=== PATIENT | male | born 1950 | race Caucasian/White ===

== ENCOUNTER 2018-10-25 10:46 | Emergency (ER) | payer OTHER ==
[2018-10-25 11:35] LABS: ADD MAN DIFF? NO
[2018-10-25 11:36] LABS: BASOPHIL # 0.1 10^3/ul (0.0-0.1); BASOPHILS % 0.6 % (0.0-2.0); EOSINOPHILS # 0.4 10^3/ul (0.0-0.5); EOSINOPHILS % 3.1 % (0.0-7.0); HEMATOCRIT 38.3 % (42.0-52.0); HEMOGLOBIN 12.4 g/dl (14.0-18.0); LYMPHOCYTES # 1.7 10^3/ul (0.8-2.9); LYMPHOCYTES % 13.7 % (15.0-51.0); MEAN CORPUSCULAR HEMOGLOBIN 30.1 pg (29.0-33.0); MEAN CORPUSCULAR HGB CONC 32.4 g/dl (32.0-37.0); MEAN PLATELET VOLUME 9.5 fl (7.4-10.4); MONOCYTE # 0.7 10^3/ul (0.3-0.9); MONOCYTES % 6.1 % (0.0-11.0); NEUTROPHIL # 9.1 10^3/ul (1.6-7.5); NEUTROPHILS % 75.3 % (39.0-77.0); PLATELET COUNT 451 10^3/UL (140-415); RED BLOOD COUNT 4.12 10^6/ul (4.70-6.10); RED CELL DISTRIBUTION WIDTH 12.1 % (11.5-14.5)
[2018-10-25 11:36] LABS: WHITE BLOOD COUNT 12.1 10^3/ul (4.8-10.8)
[2018-10-25 11:56] LABS: INR 1.05; PARTIAL THROMBOPLASTIN TIME 29.6 Sec (23.0-35.0); PROTIME 13.8 Sec (11.9-14.9); PT RATIO 1.1
[2018-10-25 12:08] LABS: ANION GAP 6 (5-13); BLOOD UREA NITROGEN 25 mg/dl (7-20); CARBON DIOXIDE 26 mmol/L (21-31); CHLORIDE 109 mmol/L (97-110); CREATININE 1.41 mg/dl (0.61-1.24); Estimated GFR 50 mL/min (>60); GLUCOSE 98 mg/dl (70-220); POTASSIUM 4.4 mmol/L (3.5-5.1); SODIUM 141 mmol/L (135-144)
[2018-10-25 12:27] LABS: TROPONIN-I < 0.012 ng/ml (0.000-0.120)
== END 2018-10-25 12:40 | disposition home or self-care (01) ==
LOC: E/R 10:46
DX: L03.116 Cellulitis of left lower limb (principal); I25.2 Old myocardial infarction; Z98.61 Coronary angioplasty status
CPT/HCPCS: 71045; 80048; 84484; 85025; 85610; 85730; 93971; 99285-25